=== PATIENT | female | born 1975 | race Caucasian/White ===

== ENCOUNTER 2019-05-20 21:06 | Emergency (ER) | payer OTHER ==
[2019-05-20] MEDS ORDERED: SUMATRIPTAN 6 MG/0.5 ML INJ SC (23:30)
[2019-05-20] MEDS: METOCLOPRAMIDE 10 MG INJ IV (23:39)
[2019-05-20] MEDS: DIPHENHYDRAMINE 50 MG INJ IV (23:39)
[2019-05-20] MEDS: SOD CHLORIDE 0.9% 1,000 ML IV (23:39)
[2019-05-21 00:06] LABS: ADD UMIC YES; UR ASCORBIC ACID 20 mg/dL (NEGATIVE); UR BILIRUBIN (Dip) NEGATIVE (NEGATIVE); UR BLOOD (Dip) 1+ mg/dL (NEGATIVE); UR CLARITY CLEAR (CLEAR); UR COLOR YELLOW (YELLOW); UR GLUCOSE (Dip) NEGATIVE (NEGATIVE); UR KETONES (Dip) NEGATIVE (NEGATIVE); UR LEUKOCYTE ESTERASE (Dip) NEGATIVE Leu/ul (NEGATIVE); UR NITRITE (Dip) NEGATIVE (NEGATIVE); UR RBC 13 /HPF (0-5); UR SPECIFIC GRAVITY (Dip) 1.014 (1.003-1.030); UR SQUAMOUS EPITHELIAL CELL FEW /HPF (FEW); UR TOTAL PROTEIN (Dip) NEGATIVE (NEGATIVE); UR UROBILINOGEN (Dip) NEGATIVE (NEGATIVE); UR WBC 0 /HPF (0-5)
== END 2019-05-20 23:47 | disposition left against medical advice (07) ==
LOC: FTE 23:47
DX: R51 Headache (principal)
CPT/HCPCS: 81001; 81025; 96374; 96375; 99284-25